=== PATIENT | male | born 1960 | race Caucasian/White ===

== ENCOUNTER → 2018-10-15 11:31 | Outpatient (CLI) | payer BC, SELFPAY ==
[2017-01-09 17:59] VITALS: BMI 27.8
[2018-10-15 14:27] LABS: Absolute Lymphocyte Count 0.68 X10^3/ul (0.83-4.51); Absolute Neutrophil Count 2.9 X10^3/uL (2.0-7.7); Basophil# 0.02 X10^3/uL; Basophil% 0.5 % (0-1); Eosinophil# 0.12 X10^3/uL; Eosinophils% 2.9 % (0-5); Hematocrit 41.1 % (40-54); Hemoglobin 13.8 g/dl (13.0-16.5); Lymphocyte # 0.68 X10^3/ul (4.0); Lymphocyte % 16.2 % (19-41); Mean Corp Hgb Conc 33.6 g/gl (32-36); Mean Corpuscular Hgb 33.8 pg (27.0-32.0); Mean Corpuscular Volume 100.7 fL (80-94); Mean Platelet Vol. 9.6 fl (6.2-12.0); Monocyte# 0.49 X10^3/uL; Monocyte% 11.7 % (0-10); Neutrophil # 2.88 X10^3/uL (2.7-7.7); Neutrophil % 68.5 % (47-70); Platelet Count 199 K/mm3 (150-450); RBC Distribution Width SD 47.7 fl (35.1-43.9); Red Blood Count 4.08 M/mm3 (4.6-6.2); White Blood Count 4.2 K/mm3 (4.4-11.0)
[2018-10-15 14:28] LABS: POSITIVE COUNT NO; POSITIVE DIFFERENTIAL NO; POSITIVE MORPHOLOGY NO
[2018-10-15 14:47] LABS: ALB/GLOB Ratio 1.3 RATIO (0.9-2.4); AST(SGOT) 12 U/L (15-37); Alanine Aminotransfer ALT/SGPT 20 U/L (16-61); Albumin, Serum 3.6 g/dL (3.2-5.0); Alkaline Phosphatase 60 U/L (45-117); Anion Gap 9 (5-15); BUN 13 mg/dL (7-18); BUN/Creat Ratio 12.9 RATIO (10-20); Calcium,Total 8.5 mg/dL (8.5-10.1); Chloride 106 mmol/L (98-107); Cholesterol 179 mg/dL (200); Creatinine, Serum 1.01 mg/dL (0.70-1.30); EST Glomerular Filtration Rate 81 mL/min (>60); Est Glom Filt Rate - Afr Amer 98 mL/min (>60); Ferritin 89 ng/mL (26-388); Globulin 2.7 g/dL (2.2-4.2); Glucose 79 mg/dL (74-106); High Density Lipoprotein 50 mg/dL; Potassium 3.7 mmol/L (3.5-5.1); Protein, Total 6.3 g/dL (6.4-8.2); Sodium Level 145 mmol/L (136-145); Thyroid Stim Hormone (TSH) 2.44 uIU/mL (0.358-3.74); Triglycerides 172 mg/dL; Very Low Density Lipoprotein 34 mg/dL (5-40)
[2018-10-15 14:51] LABS: Microalbumin,Random Urine 7.8 mg/L (NO RANGE EST.); Microalbumin:Creatinine Ratio 6.7 mg/g CRE (<30 mg/g CRE)
--- OUTSIDE RECORDS SUMMARY | 2018-12-01 14:53 | XMS RPT_ITS ---
:1960 Author Organization [facility] Care Team Providers Name Role Phone Ean Malik Attending Unavailable Ean Malik Primary Care Unavailable Ean Malik Attending Unavailable Ean Malik Primary Care Unavailable DOCTOR, OUT OF TOWN Attending Unavailable Dayday Liu Primary Care Unavailable Ean Malik Attending Unavailable Ean Malik Referring Unavailable Ean Malik Primary Care Unavailable Dustin Shook Attending Unavailable Dayday Liu Primary Care Unavailable Waldemar Medina Consulting Unavailable PROBLEMS PROBLEMS DATE TYPE CONDITION / CODE ATTENDING STATUS SOURCE 11/12/2018 Unknown K50.90 - Crohn's Dustin Shook Active [facility] disease, Community unspecified, Hospital without Repository complications / K50.90(ICD-10) 11/12/2018 Unknown 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, Repository nonobliterative, right ear / H80.01(ICD-10) 11/12/2018 Unknown Z87.442 - Personal Dustin Shook Active [facility] history of urinary Community calculi / Hospital Z87.442(ICD-10) Repository 10/16/2018 Unknown I10 - Essential Ean Malik Active [facility] (primary) Community hypertension / Hospital I10(ICD-10) Repository 10/16/2018 Unknown 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[facility] enteritis of Community unspecified site / Hospital 555.9(ICD-9) Repository 10/16/2018 Unknown 401.9 - Unspecified Ean Malik Active [facility] essential Community hypertension / Hospital 401.9(ICD-9) Repository PROCEDURES PROCEDURES No Procedure Records FoundRESULTS RESULTS LIMITED CHEST CT Observed: 11/12/2018 Status: F Source: GIUSEPPE W/CCTA 12:53 PM [facility] H[facility] REPOSITORY [facility] [address] [place] [address] w/CCTA MR#: [id number] Acct: [id number] Name: PERLA BIGGS Rep #: [id number] : 1960 M 58 From: Ilya Miranda MD PCP: Ean Malik MD Status: REG CLI Study: Limited Chest CT w/CCTA Date of Exam: 11/12/18 Exam# [id number] Ordering Dr: Ean Malik MD STUDY: CT CHEST WITH T WITHOUT CONTRAST REASON FOR EXAM: Male, 58 years old. Family history of coronary artery disease. Chest over read examination. RADIATION DOSAGE (If Supplied By Facility): CTDIvol = ( 8.94 ) mGy, DLP = ( 362.28 ) mGycm TECHNIQUE: Transaxial imaging was performed pre-and post contrast administration of 60mL ml of Isovue 370 contrast material. Individualized dose optimization techniques were used for this CT. COMPARISON: None. FINDINGS: Mild degree of increased interstitial markings at the lung bases suggestive of a scarring. There is a 1 cm x 1 cm bulla in the posterior medial segment of the left lower lobe. There is no demonstrated pleural abnormality. Focal calcification of the LAD. There are multiple small lymph nodes within the mediastinum, which are normal in size and morphology most compatible with reactive lymph hyperplasia. Normal hilar regions. Normal enhanced and unenhanced pulmonary arteries. Normal aorta arch and descending thoracic aorta. Normal osseous structures. There is no demonstrated abnormality of the visualized upper abdomen. CT/Limited Chest CT w/CCTA IMPRESSION: Coronary artery calcification. Findings suggestive of bibasilar scarring with small bulla in the left lower lobe. Electronically Signed: Ilya Miranda MD at 14:03 EST Tel [phone], Service support , CC: Ean Malik MD Water Truck Driver: Signed BASIC METABOLIC Collected: 10/30/2018 Status: F Source: [facility] PROFILE (BMP) 9:29 AM [facility] REPOSITORY TYPE CODE TESTS RESULT OUT OF RANGE REFERENCE UNITS LAB L501.0100 74-106 mg/dL Normal GLU 96 Result Comment: Please note revised GLUCOSE reference range effective 2017. LAB L501.1000 7-18 mg/dL Normal BUN 16 LAB L501.1100 0.70-1.30 mg/dL Normal CREAT,SERUM 1.08 Result Comment: The validity of the calculated GFR AND GFRAA in patients over 70 years has not been determined. Clinical correlation is essential. LAB L501.1110 >60 mL/min Normal EST GFR 75 Result Comment: Non- GFR Calc LAB L501.1115 >60 mL/min Normal EST GFR - AA 91 Result Comment: GFR Calc LAB L501.1300 10-20 RATIO Normal BUN/CRE 14.8 LAB L501.2200 8.5-10.1 mg/dL Low CA 8.4 LAB L501.5300 136-145 mmol/L NA Normal 142 LAB L501.5600 3.5-5.1 mmol/L K Normal 4.0 LAB L501.5900 98-107 mmol/L CL Normal 106 LAB L501.6100 21.0-32.0 mmol/L Normal CO2 28.0 LAB L501.6200 5-15 Normal GAP 8 Performed By: #### L500.2500 #### [facility] [address] [place], [address] CBC W/DIFF, AUTOMATED Collected: 10/15/2018 Status: F Source: GIUSEPPE 11:33 AM [facility] REPOSITORY TYPE CODE TESTS RESULT OUT OF RANGE REFERENCE UNITS LAB L100.1000 4.4-11.0 K/mm3 Low WBC 4.2 LAB L100.1200 4.6-6.2 M/mm3 Low RBC 4.08 LAB L100.1300 13.0-16.5 g/dl Normal HGB 13.8 LAB L100.1400 40-54 % Normal HCT 41.1 LAB L100.1500 80-94 fL High MCV 100.7 LAB L100.1600 27.0-32.0 pg High MCH 33.8 LAB L100.1700 32-36 g/gl Normal MCHC 33.6 LAB L100.1810 11.6-14.6 % Normal RDW CV 13.0 LAB L100.1820 35.1-43.9 fl High RDW SD 47.7 LAB L100.1900 150-450 K/mm3 Normal PLT 199 LAB L100.2000 6.2-12.0 fl Normal MPV 9.6 LAB L100.2100 47-70 % Normal NEUT% 68.5 LAB L100.2200 19-41 % Low LY% 16.2 LAB L100.2300 0-10 % High MONO% 11.7 LAB L100.2400 0-5 % Normal EO% 2.9 LAB L100.2500 0-1 % Normal BASO% 0.5 LAB L100.2550 0.0-0.9 % Normal IM GRAN % 0.200 Result Comment: IG% - Immature Granulocytes (promyelocytes, myelocytes and metamyelocytes) > 1% indicates that a LEFT SHIFT is Present. LAB L100.2620 2.0-7.7 X10 3/uL Normal Absolute Neut 2.9 LAB L100.2720 0.83-4.51 X10 3/ul Low Absolute Lymph 0.68 Performed By: #### L100.0100, L500.4050, L500.4100, L501.9520, L503.6550, L502.0250 #### [facility] [address] [place], [address] COMPREHENSIVE METABOLIC Collected: 10/15/2018 Status: F Source: [facility] 11:33 AM [facility] REPOSITORY TYPE CODE TESTS RESULT OUT OF RANGE REFERENCE UNITS LAB L501.0100 74-106 mg/dL Normal GLU 79 Result Comment: Please note revised GLUCOSE reference range effective 2017. LAB L501.1000 7-18 mg/dL Normal BUN 13 LAB L501.1100 0.70-1.30 mg/dL Normal CREAT,SERUM 1.01 Result Comment: The validity of the calculated GFR AND GFRAA in patients over 70 years has not been determined. Clinical correlation is essential. LAB L501.1110 >60 mL/min Normal EST GFR 81 Result Comment: Non- GFR Calc LAB L501.1115 >60 mL/min Normal EST GFR - AA 98 Result Comment: GFR Calc LAB L501.1300 10-20 RATIO Normal BUN/CRE 12.9 LAB L501.1500 6.4-8.2 g/dL Low T PROT 6.3 LAB L501.1800 3.2-5.0 g/dL Normal ALB 3.6 LAB L501.1950 2.2-4.2 g/dL Normal GLOB 2.7 LAB L501.2000 0.9-2.4 RATIO Normal A/G 1.3 LAB L501.2200 8.5-10.1 mg/dL CA Normal 8.5 LAB L501.4100 15-37 U/L Low AST 12 LAB L501.4305 45-117 U/L Normal ALK P 60 LAB L501.4405 16-61 U/L Normal ALT 20 LAB L501.4600 0.20-1.00 mg/dL T Normal BILI 0.60 LAB L501.5300 136-145 mmol/L NA Normal 145 LAB L501.5600 3.5-5.1 mmol/L K Normal 3.7 LAB L501.5900 98-107 mmol/L CL Normal 106 LAB L501.6100 21.0-32.0 mmol/L Normal CO2 30.0 LAB L501.6200 5-15 Normal GAP 9 Performed By: #### L100.0100, L500.4050, L500.4100, L501.9520, L503.6550, L502.0250 #### [facility] [address] [place], [address] LIPID PROFILE Collected: 10/15/2018 Status: F Source: GIUSEPPE 11:33 AM [facility] REPOSITORY TYPE CODE TESTS RESULT OUT OF RANGE REFERENCE UNITS LAB L501.4900 200 mg/dL Normal CHOL 179 Result Comment: <200 mg/dL Desirable 200-240 mg/dL Borderline >240 mg/dL High Risk LAB L501.5000 mg/dL Normal TRIG 172 Result Comment: The drugs N-Acetylcysteine and Metamizole may falsely depress this assay. Serum Triglycerides Reference Interval Normal <150 mg/dL Borderline high 150 - 199 mg/dL High 200 - 499 mg/dL Very High > or = 500 mg/dL LAB L501.6400 mg/dL Normal HDL 50 Result Comment: The drugs N-Acetylcysteine and Metamizole may falsely depress this assay. Reference Range HDL <40 mg/dL Low HDL Cholesterol HDL >or= 60 mg/dL High HDL Cholesterol LAB L501.6500 0-130 mg/dL Normal LDL 95 LAB L501.6600 5-40 mg/dL Normal VLDL 34 Performed By: #### L100.0100, L500.4050, L500.4100, L501.9520, L503.6550, L502.0250 #### [facility] [address] [facility] [address] [place], [place], [address] THYROID STIM HORMONE Collected: 10/15/2018 Status: F Source: [facility] ([facility]) 11:33 AM [facility] REPOSITORY TYPE CODE TESTS RESULT OUT OF RANGE REFERENCE UNITS LAB L501.9520 0.358-3.74 uIU/mL Normal TSH 2.44 Performed By: #### L100.0100, L500.4050, L500.4100, L501.9520, L503.6550, L502.0250 #### [facility] [address] [place], [place], [address] FERRITIN Collected: 10/15/2018 Status: F Source: [facility] 11:33 AM [facility] REPOSITORY TYPE CODE TESTS RESULT OUT OF RANGE REFERENCE UNITS LAB L503.6550 26-388 ng/mL Normal FERRITIN 89 Performed By: #### L100.0100, L500.4050, L500.4100, L501.9520, L503.6550, L502.0250 #### [facility] [address] [place], [address] MICROALB:CREAT Collected: 10/15/2018 Status: F Source: GIUSEPPE RATIO,RANDOM UR 11:33 AM [facility] REPOSITORY TYPE CODE TESTS RESULT OUT OF RANGE REFERENCE UNITS LAB L501.1200 NO RANGE EST. mg/dL Normal UR CREAT 116.00 LAB L502.0500 NO RANGE EST. mg/L Normal 7.8 MICROALBUMIN ,UR LAB L502.0600 <30 mg/g CRE mg/g CRE Normal 6.7 MALB:CREAT Performed By: #### L100.0100, L500.4050, L500.4100, L501.9520, L503.6550, L502.0250 #### [facility] [address] [place], [address] DOWNTIME REPORT Observed: 04/24/2018 Status: F Source: GIUSEPPE 12:13 PM [facility] REPOSITORY [facility] Medical Records Department [address] [place] [address] Downtime Report MR#: [id number] Acct: [id number] Name: PERLA BIGGS Rep #: [id number] : 1960 57 From: Brody Mcdaniel PCP: Dayday Liu MD Status: REG RCR This patient was seen during an EMR downtime April 07, 2018 - April 14, 2018. This patient may have a combination of paper and electronic documentation or all paper documentation. All documentation is viewable within the e-chart portion of e(ye)BRAIN for each patient visit. ALLERGIES ALLERGIES DATE TYPE / CODE NAME / CODE REACTION SEVERITY SOURCE 01/09/2017 Drug amoxicillin Rash Unknown [facility] Allergy/416 trihydrate/[id number] [facility] 060352(SNOM 707(RXNORM) Hospital ED CT) Repository ENCOUNTERS ENCOUNTERS ADMIT/DISCHARGE ACCOUNT ADMITTING ENCOUNTER LOCATION SOURCE NUMBER CLASS 11/12/2018 [id number] Ambulatory BMSBuilding:B [facility] MS.CF.[facility] Repository 11/12/2018 [id number] Ambulatory [facility] ing:CT Repository 10/30/2018 [id number] Ambulatory [facility] ing:MFPLAB Repository 10/20/2018 [id number] Ambulatory [place] [facility] 0 [facility] ing:MASS Repository 10/15/2018 [id number] Ambulatory [facility] 4 [facility] ing:MFPLAB Repository PAYERS PAYERS ENCOUNTER GUARANTOR PAYER SUBSCRIBER SOURCE 11/12/2018 PERLA A Primary PERLA A [facility] [id number] Insurance:MEDICAL MAIRSDOB: [facility] 5650[place] Number: Repository [id number]: [phone]) [id number] [phone] (HP) Date:[id number] [address] [place] [id number]: 11/12/2018 Secondary NOT GIVENUNK [facility] Insurance:SELF PAY [facility] Number: Effective Repository Date:2018-11-12 11/12/2018 PERLA A Primary NOT GIVENUNK [facility] [id number] Insurance:SELF PAY [place], [place] Number: Effective Repository [id number]: 330) Date:2018-10-22 [phone] (HP) 10/30/2018 MARIO A [id number] Primary PERLA A [facility] [place] Insurance:ANTHEMPolic MAIRSDOB: [place] Number: [id number] [id number]: [phone]) [id number] Repository [phone] (HP) Date:[id number] [place] [address]TE: 10/30/2018 Secondary NOT GIVENUNK [facility] Insurance:SELF PAY [facility] Number: Effective Repository Date:2018-10-30 10/20/2018 MARIO A [id number] Primary NOT GIVENUNK [facility] N [place] Insurance:SELF PAY [facility] [address]Gco: [phone] Number: Effective Repository [phone] (HP) Date:2017-03-12 10/15/2018 MARIO A [id number] Primary PERLA A [facility] N [place] Insurance:ANTHEMPolic [place]OB: [place] Number: [id number] [id number]: ([phone]) [id number] Repository [phone] () Date:0728-08-62[address], [place] [address]SF: 10/15/2018 Secondary NOT GIVENUNK [facility] Insurance:SELF PAY [facility] Number: Effective Repository Date:2018-10-15
== END ==
PROVIDERS: Family Provider Family Medicine; PCP Family Medicine; Visit Provider Family Medicine
DX: K50.90 Crohn's disease, unspecified, without complications (principal); I10 Essential (primary) hypertension
CPT/HCPCS: 36415; 80053; 80061; 82043; 82570; 82728; 84443; 85025

== ENCOUNTER → 2018-10-30 09:28 | Outpatient (CLI) | payer BC, SELFPAY ==
[2017-01-09 17:59] VITALS: BMI 27.8
[2018-10-30 12:58] LABS: Anion Gap 8 (5-15); BUN 16 mg/dL (7-18); BUN/Creat Ratio 14.8 RATIO (10-20); Calcium,Total 8.4 mg/dL (8.5-10.1); Chloride 106 mmol/L (98-107); Creatinine, Serum 1.08 mg/dL (0.70-1.30); EST Glomerular Filtration Rate 75 mL/min (>60); Est Glom Filt Rate - Afr Amer 91 mL/min (>60); Glucose 96 mg/dL (74-106); Sodium Level 142 mmol/L (136-145)
== END ==
PROVIDERS: Family Provider Family Medicine; PCP Family Medicine; Visit Provider Family Medicine
DX: I10 Essential (primary) hypertension (principal)
CPT/HCPCS: 36415; 80048

== ENCOUNTER → 2018-11-12 12:42 | Outpatient (CLI) | payer SELFPAY ==
--- NOTE | 2018-11-12 12:53 | CT_ITS ---
STUDY: CT CHEST WITH T WITHOUT CONTRAST REASON FOR EXAM: Male, 58 years old. Family history of coronary artery disease. Chest over read examination. RADIATION DOSAGE (If Supplied By Facility): CTDIvol = ( 8.94 ) mGy, DLP = ( 362.28 ) mGycm TECHNIQUE: Transaxial imaging was performed pre-and post contrast administration of 60mL ml of Isovue 370 contrast material. Individualized dose optimization techniques were used for this CT. COMPARISON: None. FINDINGS: Mild degree of increased interstitial markings at the lung bases suggestive of a scarring. There is a 1 cm x 1 cm bulla in the posterior medial segment of the left lower lobe. There is no demonstrated pleural abnormality. Focal calcification of the LAD. There are multiple small lymph nodes within the mediastinum, which are normal in size and morphology most compatible with reactive lymph hyperplasia. Normal hilar regions. Normal enhanced and unenhanced pulmonary arteries. Normal aorta arch and descending thoracic aorta. Normal osseous structures. There is no demonstrated abnormality of the visualized upper abdomen. CT/Limited Chest CT w/CCTA IMPRESSION: Coronary artery calcification. Findings suggestive of bibasilar scarring with small bulla in the left lower lobe. Electronically Signed: Ilya Miranda MD at 14:03 EST Tel [phone], Service support ,
[2018-11-12 13:02] VITALS: BP 153/89; PULSE 59; RESP 14; O2SAT 99; BMI 27.6
[2018-11-12 13:23] VITALS: BP 153/89; PULSE 59
[2018-11-12 13:30] VITALS: BP 136/83; PULSE 66; RESP 14
--- NOTE | 2018-11-13 18:38 | CCTA.WCONT ---
CCTA w/Cont Coronary Arteries Date of Study:: 11/12/18 Dyspnea on exertion Consent:: Per the patient Cardiac CTA LEFT MAIN CORONARY ARTERY: This is a large vessel giving rise to the left anterior descending and left circumflex coronary arteries. It does not appear to demonstrate any obvious angiographically significant appearing coronary artery disease. LEFT ANTERIOR DESCENDING CORONARY ARTERY: This is a large vessel which gives rise to a diagonal branch. The LAD does not appear to demonstrate any obvious angiographically significant appearing coronary artery disease. The first diagonal branch appears to demonstrate a proximal eccentric calcified nonobstructive plaque. LEFT CIRCUMFLEX CORONARY ARTERY: This is a large vessel which does not appear to demonstrate any obvious angiographically significant appearing coronary artery disease. RIGHT CORONARY ARTERY: This is a large dominant vessel which does not appear to demonstrate any obvious angiographically significant appearing coronary artery disease. THORACIC AORTA: The thoracic aorta appears to be patent with no obvious angiographically significant appearing peripheral arterial occlusive disease. PULMONARY ARTERY: The main pulmonary artery and right and left pulmonary arteries appear to be patent without obvious filling defects. LEFT ATRIUM/APPENDAGE: The left atrial appendage appears without obvious filling defect. MITRAL VALVE: The mitral valve appears to be bileaflet. AORTIC VALVE: The aortic valve appears to be trileaflet. LEFT VENTRICLE: Secondary to IT technical difficulties regarding left ventricular evaluation, the left ventricular wall motion, systolic function, and LVEF cannot be commented upon at this time. CORONARY CALCIUM SCORE: The coronary calcium score was reported at 37.2. According to pre-published reference tables a coronary calcium score of 37.2 would be indicative of mild plaque burden and the likelihood of minimal to mild coronary artery stenosis. This note was generated with [employer] software. It may contain incorrect words, spelling, and punctuation that were not noted in checking the note before signing.
--- NOTE | 2018-11-13 18:42 | CCTA_ITS ---
CCTA w/Cont Coronary Arteries Date of Study:: 11/12/18 Dyspnea on exertion Consent:: Per the patient Cardiac CTA LEFT MAIN CORONARY ARTERY: This is a large vessel giving rise to the left anterior descending and left circumflex coronary arteries. It does not appear to demonstrate any obvious angiographically significant appearing coronary artery disease. LEFT ANTERIOR DESCENDING CORONARY ARTERY: This is a large vessel which gives rise to a diagonal branch. The LAD does not appear to demonstrate any obvious angiographically significant appearing coronary artery disease. The first diagonal branch appears to demonstrate a proximal eccentric calcified nonobstructive plaque. LEFT CIRCUMFLEX CORONARY ARTERY: This is a large vessel which does not appear to demonstrate any obvious angiographically significant appearing coronary artery disease. RIGHT CORONARY ARTERY: This is a large dominant vessel which does not appear to demonstrate any obvious angiographically significant appearing coronary artery disease. THORACIC AORTA: The thoracic aorta appears to be patent with no obvious angiographically signi ficant appearing peripheral arterial occlusive disease. PULMONARY ARTERY: The main pulmonary artery and right and left pulmonary arteries appear to be patent without obvious filling defects. LEFT ATRIUM/APPENDAGE: The left atrial appendage appears without obvious filling defect. MITRAL VALVE: The mitral valve appears to be bileaflet. AORTIC VALVE: The aortic valve appears to be trileaflet. LEFT VENTRICLE: Secondary to IT technical difficulties regarding left ventricular evaluation, the left ventricular wall motion, systolic function, and LVEF cannot be commented upon at this time. CORONARY CALCIUM SCORE: The coronary calcium score was reported at 37.2. According to pre-published reference tables a coronary calcium score of 37.2 would be indicative of mild plaque burden and the likelihood of minimal to mild coronary artery stenosis. This note was generated with [employer] software. It may contain incorrect words, spelling, and punctuation that were not noted in checking the note before signing.
== END ==
PROVIDERS: Family Provider Family Medicine; PCP Family Medicine; Referring Provider Family Medicine; Visit Provider Family Medicine
DX: R06.09 Other forms of dyspnea (principal); Z82.49 Family history of ischemic heart disease and other diseases of the circulatory system
CPT/HCPCS: 75571; 75574; 76380; Q9967; A4216

== ENCOUNTER → 2019-08-03 09:33 | Outpatient (CLI) | payer BC, SELFPAY ==
[2018-11-12 13:02] VITALS: BMI 27.6
[2019-08-03 09:36] LABS: Lyme Ab Screen Interpretation REF LAB
[2019-08-03 12:28] LABS: Absolute Lymphocyte Count 0.36 X10^3/uL (0.83-4.51); Absolute Neutrophil Count 3.1 X10^3/uL (2.0-7.7); Basophil# 0.03 X10^3/uL; Basophil% 0.7 % (0-1); Differential Indicated SCAN CRITERIA MET; Eosinophil# 0.14 X10^3/uL; Eosinophils% 3.4 % (0-5); Hematocrit 42.1 % (40-54); Hemoglobin 14.3 g/dL (13.0-16.5); Lymphocyte # 0.36 X10^3/ul (4.0); Lymphocyte % 8.7 % (19-41); Mean Corpuscular Hgb 34.3 pg (27.0-32.0); Mean Platelet Vol. 9.8 fl (6.2-12.0); Monocyte# 0.49 X10^3/uL; Monocyte% 11.8 % (0-10); NRBC Flagged by Analyzer 0 % (0-5); Neutrophil # 3.12 X10^3/uL (2.7-7.7); Neutrophil % 75.2 % (47-70); POSITIVE DIFFERENTIAL YES; Platelet Count 214 K/mm3 (150-450); RBC Distribution Width CV 11.9 % (11.6-14.6); RBC Distribution Width SD 44.9 fl (35.1-43.9); Red Blood Count 4.17 M/mm3 (4.6-6.2); White Blood Count 4.2 K/mm3 (4.4-11.0)
[2019-08-03 13:06] LABS: Vitamin B12 336 pg/mL (211-911)
[2019-08-03 13:11] LABS: ALB/GLOB Ratio 1.2 RATIO (0.9-2.4); AST(SGOT) 15 U/L (15-37); Alanine Aminotransfer ALT/SGPT 27 U/L (16-61); Albumin, Serum 3.9 g/dL (3.2-5.0); Alkaline Phosphatase 63 U/L (45-117); Anion Gap 8 (5-15); BUN 12 mg/dL (7-18); BUN/Creat Ratio 10.9 RATIO (10-20); Calcium,Total 8.7 mg/dL (8.5-10.1); Chloride 106 mmol/L (98-107); EST Glomerular Filtration Rate 73 mL/min (>60); Est Glom Filt Rate - Afr Amer 89 mL/min (>60); Globulin 3.2 g/dL (2.2-4.2); Glucose 118 mg/dL (74-106); Potassium 3.8 mmol/L (3.5-5.1); Protein, Total 7.1 g/dL (6.4-8.2); Sodium Level 142 mmol/L (136-145); Thyroid Stim Hormone (TSH) 4.59 uIU/mL (0.358-3.74)
[2019-08-04 14:09] LABS: Pathologist Review Reviewed
[2019-08-05 09:43] LABS: T4 Free Direct 0.91 ng/dL (0.76-1.46)
[2019-08-05 12:56] LABS: Lyme Scn Total Ab w/Rflx <0.91 ISR (0.00-0.90)
[2019-08-07 02:40] LABS: Rapid Plasmin Reagin (RPR) NONREACTIVE (NONREACTIVE)
== END ==
PROVIDERS: Family Provider Family Medicine; PCP Family Medicine; Referring Provider Family Medicine; Visit Provider Family Medicine
DX: G31.84 Mild cognitive impairment of uncertain or unknown etiology (principal)
CPT/HCPCS: 36415; 80053; 82607; 82746; 84439; 84443; 85025; 86592; 86618

== ENCOUNTER → 2019-08-11 14:21 | Outpatient (CLI) | payer BC, SELFPAY ==
[2018-11-12 13:02] VITALS: BMI 27.6
--- NOTE | 2019-08-11 14:25 | CT_ITS ---
STUDY: CT BRAIN WITHOUT CONTRAST REASON FOR EXAM: Male, 58 years old. Cognitive impairment. RADIATION DOSAGE (If Supplied By Facility): CTDIvol = ( 61 ) mGy, DLP = ( limiting 1 ) mGycm TECHNIQUE: Transaxial CT imaging of the brain was performed without administration of intravenous contrast material. Individualized dose optimization techniques were used for this CT. COMPARISON: None. FINDINGS: There is no acute bleed or infarct. There are normal white matter tracts. The ventricles are normal in configuration. There is no hydrocephalus. The visualized paranasal sinuses are clear. The mastoid air cells are well aerated. There is no skull fracture. CT/Brain/Head without Contrast IMPRESSION: Unremarkable noncontrast CT of the brain. Electronically Signed: Nakul Sequeira, at 17:45 EDT Tel , Service support ,
== END ==
PROVIDERS: Family Provider Family Medicine; PCP Family Medicine; Referring Provider Family Medicine; Visit Provider Family Medicine
DX: G31.84 Mild cognitive impairment of uncertain or unknown etiology (principal)
CPT/HCPCS: 70450

== ENCOUNTER → 2020-02-29 10:18 | Outpatient (CLI) | payer BC, SELFPAY ==
[2018-11-12 13:02] VITALS: BMI 27.6
[2020-02-29 12:10] LABS: Absolute Lymphocyte Count 0.73 X10^3/uL (0.83-4.51); Absolute Neutrophil Count 2.5 X10^3/uL (2.0-7.7); Basophil# 0.04 X10^3/uL; Eosinophil# 0.12 X10^3/uL; Eosinophils% 3.1 % (0-5); Hematocrit 42.1 % (40-54); Hemoglobin 14.2 g/dL (13.0-16.5); Lymphocyte # 0.73 X10^3/ul (4.0); Lymphocyte % 19.1 % (19-41); Mean Corp Hgb Conc 33.7 g/dL (32-36); Mean Corpuscular Hgb 34.4 pg (27.0-32.0); Mean Corpuscular Volume 101.9 fL (80-94); Mean Platelet Vol. 9.9 fl (6.2-12.0); Monocyte# 0.44 X10^3/uL; Monocyte% 11.5 % (0-10); NRBC Flagged by Analyzer 0 % (0-5); Neutrophil # 2.47 X10^3/uL (2.7-7.7); Neutrophil % 64.8 % (47-70); Platelet Count 206 K/mm3 (150-450); RBC Distribution Width CV 12.1 % (11.6-14.6); RBC Distribution Width SD 45.6 fl (35.1-43.9); Red Blood Count 4.13 M/mm3 (4.6-6.2); White Blood Count 3.8 K/mm3 (4.4-11.0)
[2020-02-29 12:20] LABS: AST(SGOT) 15 U/L (15-37); Alanine Aminotransfer ALT/SGPT 20 U/L (16-61); Albumin, Serum 3.6 g/dL (3.2-5.0); Alkaline Phosphatase 64 U/L (45-117); Bilirubin, Direct 0.12 mg/dL (0.00-0.30); Globulin 2.8 g/dL (2.2-4.2); Protein, Total 6.4 g/dL (6.4-8.2)
== END ==
PROVIDERS: PCP Family Medicine; Referring Provider Internal Medicine Gastroenterology; Visit Provider Internal Medicine Gastroenterology
DX: K51.90 Ulcerative colitis, unspecified, without complications (principal)
CPT/HCPCS: 36415; 80076; 85025

== ENCOUNTER → 2020-05-18 15:32 | Outpatient (CLI) | payer BC, SELFPAY ==
[2018-11-12 13:02] VITALS: BMI 27.6
--- NOTE | 2020-05-18 15:35 | RAD_ITS ---
STUDY: X-RAY CHEST REASON FOR EXAM: Male, 59 years old. CHRONIC COUGH TECHNIQUE: PA and lateral views of the chest. COMPARISON: Previous study of 01/09/2017 FINDINGS: The lungs are clear and expanded. There is no demonstrated pleural abnormality. Normal size heart. Normal mediastinum and nubia. Normal visualized pulmonary arteries. Normal visualized aortic arch and descending thoracic aorta. Normal visualized thoracic spine. Normal visualized ribs, clavicles, and shoulders. There is no demonstrated abnormality of the visualized soft tissue structures of the upper abdomen. RAD/Chest PA and Lateral IMPRESSION: Normal x-ray examination of the chest. Electronically Signed: Gregory Oleary MD at 16:08 EDT , Service support ,
== END ==
PROVIDERS: PCP Family Medicine; Referring Provider Family Medicine; Visit Provider Family Medicine
DX: R05 Cough (principal)
CPT/HCPCS: 71046

== ENCOUNTER → 2020-05-25 09:27 | Outpatient (CLI) | payer BC, SELFPAY ==
[2018-11-12 13:02] VITALS: BMI 27.6
[2020-05-25 12:42] LABS: Absolute Lymphocyte Count 0.87 X10^3/uL (0.83-4.51); Absolute Neutrophil Count 3.4 X10^3/uL (2.0-7.7); Basophil# 0.06 X10^3/uL; Basophil% 1.2 % (0-1); Eosinophils% 3.9 % (0-5); Hematocrit 43.4 % (40-54); Hemoglobin 14.8 g/dL (13.0-16.5); Lymphocyte # 0.87 X10^3/ul (4.0); Lymphocyte % 17.1 % (19-41); Mean Corp Hgb Conc 34.1 g/dL (32-36); Mean Corpuscular Hgb 34.9 pg (27.0-32.0); Mean Corpuscular Volume 102.4 fL (80-94); Mean Platelet Vol. 9.8 fl (6.2-12.0); Monocyte# 0.59 X10^3/uL; Monocyte% 11.6 % (0-10); NRBC Flagged by Analyzer 0 % (0-5); Neutrophil # 3.36 X10^3/uL (2.7-7.7); Neutrophil % 65.8 % (47-70); Platelet Count 214 K/mm3 (150-450); RBC Distribution Width CV 11.7 % (11.6-14.6); RBC Distribution Width SD 43.8 fl (35.1-43.9); Red Blood Count 4.24 M/mm3 (4.6-6.2); White Blood Count 5.1 K/mm3 (4.4-11.0)
[2020-05-25 13:01] LABS: Microalbumin,Random Urine 9.7 mg/L (NO RANGE EST.); Microalbumin:Creatinine Ratio 9.9 mg/g CRE (<30 mg/g CRE)
[2020-05-25 13:02] LABS: ALB/GLOB Ratio 1.3 RATIO (0.9-2.4); AST(SGOT) 10 U/L (15-37); Alanine Aminotransfer ALT/SGPT 21 U/L (16-61); Albumin, Serum 3.8 g/dL (3.2-5.0); Alkaline Phosphatase 66 U/L (45-117); Anion Gap 5 (5-15); BUN 18 mg/dL (7-18); BUN/Creat Ratio 16.5 RATIO (10-20); Calcium,Total 8.5 mg/dL (8.5-10.1); Chloride 108 mmol/L (98-107); Cholesterol 209 mg/dL (200); Creatinine, Serum 1.09 mg/dL (0.70-1.30); EST Glomerular Filtration Rate 74 mL/min (>60); Est Glom Filt Rate - Afr Amer 89 mL/min (>60); Ferritin 102 ng/mL (26-388); Globulin 2.9 g/dL (2.2-4.2); Glucose 114 mg/dL (74-106); High Density Lipoprotein 40 mg/dL; PSA,Total- Diagnostic 1.27 ng/mL (0.0-4.0); Potassium 3.8 mmol/L (3.5-5.1); Protein, Total 6.7 g/dL (6.4-8.2); Sodium Level 141 mmol/L (136-145); Thyroid Stim Hormone (TSH) 4.03 uIU/mL (0.358-3.74); Triglycerides 287 mg/dL; Very Low Density Lipoprotein 57 mg/dL (5-40)
[2020-05-26 10:47] LABS: T4 Free Direct 0.86 ng/dL (0.76-1.46)
== END ==
PROVIDERS: PCP Family Medicine; Referring Provider Family Medicine; Visit Provider Family Medicine
DX: Z12.5 Encounter for screening for malignant neoplasm of prostate (principal); K50.90 Crohn's disease, unspecified, without complications; I10 Essential (primary) hypertension
CPT/HCPCS: 36415; 80053; 80061; 82043; 82570; 82728; 83735; 84153; 84439; 84443; 85025

== ENCOUNTER → 2020-06-30 06:55 | Outpatient (CLI) | payer BC, SELFPAY ==
[2018-11-12 13:02] VITALS: BMI 27.6
--- NOTE | 2020-07-01 10:29 | PFT ---
INTRODUCTION: The patient is a 59-year-old male that presents for pulmonary function studies secondary to a diagnosis of chronic cough. Respiratory therapy reports good patient effort. Bronchodilators were used during testing. INTERPRETATION: Forced expiration spirometry demonstrates no evidence of a large airways obstructive ventilatory defect. There was no significant response to aerosolized bronchodilators. Spirograms are of good quality and plateau normally. Body plethysmography was performed and reveals lung volumes to be within normal limits. Diffusing capacity by single breath CO is similarly within normal limits. IMPRESSION: Grossly normal pulmonary function studies.
== END ==
PROVIDERS: PCP Family Medicine; Referring Provider Family Medicine; Visit Provider Family Medicine
DX: R05 Cough (principal)
CPT/HCPCS: 94060; 94726; 94729

== ENCOUNTER 2021-01-13 13:00 | Outpatient (RCR) | payer BC, SELFPAY ==
[2018-11-12 13:02] VITALS: BMI 27.6
[2021-01-13] MEDS: COVID-19 VACC, MRNA(PFIZER)/PF 30 MCG/0.3 ML SYRINGE IM (17:54)
[2021-02-03] MEDS: COVID-19 VACC, MRNA(PFIZER)/PF 30 MCG/0.3 ML SYRINGE IM (17:33)
== END 2021-01-13 23:59 ==
LOC: IMMUN 13:00
PROVIDERS: PCP Family Medicine; Visit Provider Family Medicine
DX: Z23 Encounter for immunization (principal)
CPT/HCPCS: 0001A; 0002A; 91300

== ENCOUNTER → 2021-08-15 11:30 | Outpatient (CLI) | payer BC, SELFPAY ==
[2021-08-15 15:00] LABS: Absolute Neutrophil Count 2.8 X10^3/uL (2.0-7.7); Basophil# 0.04 X10^3/uL; Eosinophils% 2.6 % (0-5); Hematocrit 41.7 % (40-54); Hemoglobin 14.4 g/dL (13.0-16.5); Mean Corp Hgb Conc 34.5 g/dL (32-36); Mean Corpuscular Volume 101.2 fL (80-94); Mean Platelet Vol. 10.5 fl (6.2-12.0); Monocyte# 0.37 X10^3/uL; Monocyte% 9.6 % (0-10); NRBC Flagged by Analyzer 0 % (0-5); Neutrophil # 2.82 X10^3/uL (2.7-7.7); Neutrophil % 73.5 % (47-70); POSITIVE DIFFERENTIAL YES; Platelet Count 224 K/mm3 (150-450); RBC Distribution Width CV 12.2 % (11.6-14.6); RBC Distribution Width SD 45.8 fl (35.1-43.9); Red Blood Count 4.12 M/mm3 (4.6-6.2); White Blood Count 3.8 K/mm3 (4.4-11.0)
[2021-08-15 15:04] LABS: Differential Indicated SCAN CRITERIA MET
[2021-08-15 15:41] LABS: ALB/GLOB Ratio 1.2 RATIO (0.9-2.4); AST(SGOT) 16 U/L (15-37); Alanine Aminotransfer ALT/SGPT 22 U/L (16-61); Albumin, Serum 3.7 g/dL (3.2-5.0); Alkaline Phosphatase 65 U/L (45-117); Anion Gap 6 (5-15); BUN 17 mg/dL (7-18); BUN/Creat Ratio 15.2 RATIO (10-20); Calcium,Total 8.5 mg/dL (8.5-10.1); Chloride 107 mmol/L (98-107); Cholesterol 163 mg/dL (200); Creatinine, Serum 1.12 mg/dL (0.70-1.30); EST Glomerular Filtration Rate 71 mL/min (>60); Est Glom Filt Rate - Afr Amer 86 mL/min (>60); Globulin 3.1 g/dL (2.2-4.2); Glucose 104 mg/dL (74-106); High Density Lipoprotein 47 mg/dL; Potassium 4.2 mmol/L (3.5-5.1); Protein, Total 6.8 g/dL (6.4-8.2); Sodium Level 139 mmol/L (136-145); Thyroid Stim Hormone (TSH) 2.82 uIU/mL (0.358-3.74); Triglycerides 104 mg/dL; Very Low Density Lipoprotein 21 mg/dL (5-40)
[2021-08-15 15:42] LABS: Differential Comment SCANNED
[2021-08-17 09:21] LABS: Pathologist Review Reviewed
== END ==
PROVIDERS: PCP Family Medicine; Referring Provider Family Medicine; Visit Provider Family Medicine
DX: Z00.00 Encounter for general adult medical examination without abnormal findings (principal); K50.90 Crohn's disease, unspecified, without complications; I10 Essential (primary) hypertension; R76.8 Other specified abnormal immunological findings in serum; Z20.822 Contact with and (suspected) exposure to COVID-19
CPT/HCPCS: 36415; 80053; 80061; 84443; 85025; 86769

== ENCOUNTER → 2022-03-06 | Outpatient (CLI) | payer BC, SELFPAY ==
[2022-03-06 17:45] LABS: Absolute Lymphocyte Count 0.64 X10^3/uL (0.83-4.51); Basophil# 0.03 X10^3/uL; Basophil% 0.7 % (0-1); Eosinophil# 0.14 X10^3/uL; Eosinophils% 3.3 % (0-5); Hematocrit 39.4 % (40-54); Hemoglobin 13.4 g/dL (13.0-16.5); Lymphocyte # 0.64 X10^3/ul (0.83-4.51); Mean Corpuscular Hgb 35.1 pg (27.0-32.0); Mean Corpuscular Volume 103.1 fL (80-94); Mean Platelet Vol. 9.6 fl (6.2-12.0); Monocyte# 0.47 X10^3/uL; NRBC Flagged by Analyzer 0 % (0-5); Neutrophil # 2.98 X10^3/uL (2.7-7.7); Neutrophil % 69.8 % (47-70); Platelet Count 234 K/mm3 (150-450); RBC Distribution Width CV 12.6 % (11.6-14.6); Red Blood Count 3.82 M/mm3 (4.6-6.2); White Blood Count 4.3 K/mm3 (4.4-11.0)
[2022-03-06 18:15] LABS: AST(SGOT) 18 U/L (15-37); Alanine Aminotransfer ALT/SGPT 25 U/L (16-61); Albumin, Serum 3.7 g/dL (3.2-5.0); Alkaline Phosphatase 65 U/L (45-117); Bilirubin, Direct 0.12 mg/dL (0.00-0.30); CRP < 2.90 mg/L (0.0-3.0); Protein, Total 6.7 g/dL (6.4-8.2)
[2022-03-06 18:48] LABS: Erythrocyte Sedimentation Rate < 1 mm/hr (0-20)
== END | disposition home or self-care (01) ==
LOC: MTLAB 14:53
PROVIDERS: PCP Family Medicine; Referring Provider Internal Medicine Gastroenterology; Visit Provider Internal Medicine Gastroenterology
DX: K51.90 Ulcerative colitis, unspecified, without complications (principal)
CPT/HCPCS: 36415; 80076; 85025; 85652; 86140

== ENCOUNTER → 2022-08-14 | Outpatient (CLI) | payer BC, SELFPAY ==
[2022-08-14 15:15] LABS: Erythrocyte Sedimentation Rate 3 mm/hr (0-20)
[2022-08-14 15:16] LABS: Absolute Lymphocyte Count 0.71 X10^3/uL (0.83-4.51); Absolute Neutrophil Count 3.2 X10^3/uL (2.0-7.7); Basophil# 0.03 X10^3/uL; Basophil% 0.6 % (0-1); Eosinophil# 0.13 X10^3/uL; Eosinophils% 2.8 % (0-5); Hematocrit 42.1 % (40-54); Hemoglobin 14.4 g/dL (13.0-16.5); Lymphocyte # 0.71 X10^3/ul (0.83-4.51); Lymphocyte % 15.2 % (19-41); Mean Corp Hgb Conc 34.2 g/dL (32-36); Mean Corpuscular Hgb 35.4 pg (27.0-32.0); Mean Corpuscular Volume 103.4 fL (80-94); Mean Platelet Vol. 9.8 fl (6.2-12.0); Monocyte# 0.57 X10^3/uL; Monocyte% 12.2 % (0-10); NRBC Flagged by Analyzer 0 % (0-5); Neutrophil # 3.22 X10^3/uL (2.7-7.7); Platelet Count 252 K/mm3 (150-450); RBC Distribution Width CV 12.9 % (11.6-14.6); RBC Distribution Width SD 49.1 fl (35.1-43.9); Red Blood Count 4.07 M/mm3 (4.6-6.2); White Blood Count 4.7 K/mm3 (4.4-11.0)
[2022-08-14 15:34] LABS: ALB/GLOB Ratio 1.1 RATIO (0.9-2.4); AST(SGOT) 20 U/L (15-37); Alanine Aminotransfer ALT/SGPT 23 U/L (16-61); Albumin, Serum 3.7 g/dL (3.2-5.0); Alkaline Phosphatase 69 U/L (45-117); Anion Gap 6 (5-15); BUN 13 mg/dL (7-18); Calcium,Total 8.9 mg/dL (8.5-10.1); Chloride 107 mmol/L (98-107); Creatinine, Serum 1.18 mg/dL (0.70-1.30); EST Glomerular Filtration Rate 67 mL/min (>60); Est Glom Filt Rate - Afr Amer 81 mL/min (>60); Globulin 3.5 g/dL (2.2-4.2); Glucose 91 mg/dL (74-106); Potassium 3.8 mmol/L (3.5-5.1); Protein, Total 7.2 g/dL (6.4-8.2); Sodium Level 141 mmol/L (136-145); Thyroid Stim Hormone (TSH) 3.35 uIU/mL (0.358-3.74)
[2022-08-14 15:37] LABS: Microalbumin,Random Urine 15.4 mg/L (NO RANGE EST.); Microalbumin:Creatinine Ratio 8.4 mg/g CRE (<30 mg/g CRE)
== END | disposition home or self-care (01) ==
LOC: MFPLAB 12:13
PROVIDERS: PCP Family Medicine; Referring Provider Family Medicine; Visit Provider Family Medicine
DX: Z00.00 Encounter for general adult medical examination without abnormal findings (principal); K50.90 Crohn's disease, unspecified, without complications; I10 Essential (primary) hypertension
CPT/HCPCS: 36415; 80053; 82043; 82570; 84443; 85025; 85652

== ENCOUNTER → 2023-08-19 | Outpatient (CLI) | payer BC, SELFPAY ==
[2023-08-19 12:23] LABS: Erythrocyte Sedimentation Rate 1 mm/hr (0-20)
[2023-08-19 12:29] LABS: Absolute Lymphocyte Count 0.44 X10^3/uL (0.83-4.51); Absolute Neutrophil Count 2.8 X10^3/uL (2.0-7.7); Basophil# 0.03 X10^3/uL; Basophil% 0.8 % (0-1); Eosinophil# 0.08 X10^3/uL; Eosinophils% 2.1 % (0-5); Hematocrit 42.7 % (40-54); Hemoglobin 14.5 g/dL (13.0-16.5); Lymphocyte # 0.44 X10^3/ul (0.83-4.51); Lymphocyte % 11.6 % (19-41); Mean Corpuscular Hgb 36.1 pg (27.0-32.0); Mean Corpuscular Volume 106.2 fL (80-94); Mean Platelet Vol. 9.6 fl (6.2-12.0); Monocyte# 0.45 X10^3/uL; Monocyte% 11.8 % (0-10); NRBC Flagged by Analyzer 0 % (0-5); Neutrophil # 2.78 X10^3/uL (2.7-7.7); Neutrophil % 73.2 % (47-70); POSITIVE DIFFERENTIAL YES; Platelet Count 198 K/mm3 (150-450); RBC Distribution Width CV 12.6 % (11.6-14.6); RBC Distribution Width SD 49.9 fl (35.1-43.9); Red Blood Count 4.02 M/mm3 (4.6-6.2); White Blood Count 3.8 K/mm3 (4.4-11.0)
[2023-08-19 12:32] LABS: Differential Indicated SCAN CRITERIA MET
[2023-08-19 12:45] LABS: Microalbumin,Random Urine 18.5 mg/L (NO RANGE EST.); Microalbumin:Creatinine Ratio 10.1 mg/g CRE (<30 mg/g CRE)
[2023-08-19 12:49] LABS: ALB/GLOB Ratio 1.2 RATIO (0.9-2.4); AST(SGOT) 17 U/L (15-37); Alanine Aminotransfer ALT/SGPT 28 U/L (16-61); Albumin, Serum 3.7 g/dL (3.2-5.0); Alkaline Phosphatase 72 U/L (45-117); Anion Gap 6 (5-15); BUN 15 mg/dL (7-18); BUN/Creat Ratio 11.8 RATIO (10-20); Calcium,Total 8.7 mg/dL (8.5-10.1); Chloride 108 mmol/L (98-107); Cholesterol 209 mg/dL (200); Creatinine, Serum 1.27 mg/dL (0.70-1.30); EST Glomerular Filtration Rate 61 mL/min (>60); Est Glom Filt Rate - Afr Amer 74 mL/min (>60); Globulin 3.1 g/dL (2.2-4.2); Glucose 125 mg/dL (74-106); High Density Lipoprotein 59 mg/dL; Potassium 4.1 mmol/L (3.5-5.1); Protein, Total 6.8 g/dL (6.4-8.2); Sodium Level 141 mmol/L (136-145); Thyroid Stim Hormone (TSH) 4.64 uIU/mL (0.358-3.74); Triglycerides 145 mg/dL; Very Low Density Lipoprotein 29 mg/dL (5-40)
[2023-08-21 12:49] LABS: Pathologist Review Reviewed
== END | disposition home or self-care (01) ==
LOC: MFPLAB 10:03
PROVIDERS: PCP Family Medicine; Visit Provider Family Medicine
DX: Z00.00 Encounter for general adult medical examination without abnormal findings (principal); K50.90 Crohn's disease, unspecified, without complications; I10 Essential (primary) hypertension; Z13.220 Encounter for screening for lipoid disorders
CPT/HCPCS: 36415; 80053; 80061; 82043; 82570; 84443; 85025; 85652

== ENCOUNTER → 2023-11-26 | Outpatient (CLI) | payer BC, SELFPAY ==
[2023-11-26 12:14] LABS: Absolute Lymphocyte Count 0.19 X10^3/uL (0.83-4.51); Absolute Neutrophil Count 3.8 X10^3/uL (2.0-7.7); Basophil# 0.03 X10^3/uL; Basophil% 0.7 % (0-1); Eosinophil# 0.06 X10^3/uL; Eosinophils% 1.3 % (0-5); Hematocrit 39.1 % (40-54); Hemoglobin 13.3 g/dL (13.0-16.5); Lymphocyte # 0.19 X10^3/ul (0.83-4.51); Lymphocyte % 4.1 % (19-41); Mean Corpuscular Volume 102.9 fL (80-94); Mean Platelet Vol. 9.8 fl (6.2-12.0); Monocyte# 0.51 X10^3/uL; Monocyte% 11.1 % (0-10); NRBC Flagged by Analyzer 0 % (0-5); Neutrophil # 3.78 X10^3/uL (2.7-7.7); Neutrophil % 82.4 % (47-70); POSITIVE DIFFERENTIAL YES; Platelet Count 170 K/mm3 (150-450); RBC Distribution Width CV 12.4 % (11.6-14.6); RBC Distribution Width SD 46.5 fl (35.1-43.9); White Blood Count 4.6 K/mm3 (4.4-11.0)
[2023-11-26 12:20] LABS: Differential Indicated SCAN CRITERIA MET
[2023-11-26 12:35] LABS: Differential Comment SCANNED
[2023-11-26 13:07] LABS: T4 Free Direct 0.89 ng/dL (0.76-1.46); Thyroid Stim Hormone (TSH) 2.62 uIU/mL (0.358-3.74)
[2023-11-27 14:57] LABS: Vitamin B12 273 pg/mL (211-911)
[2023-11-27 14:57] LABS: Ferritin 76 ng/mL (26-388)
== END | disposition home or self-care (01) ==
LOC: MTLAB 10:18
PROVIDERS: PCP Family Medicine; Referring Provider Family Medicine; Visit Provider Family Medicine
DX: D72.819 Decreased white blood cell count, unspecified (principal); R79.89 Other specified abnormal findings of blood chemistry
CPT/HCPCS: 36415; 82607; 82728; 84439; 84443; 85025

== ENCOUNTER → 2024-02-18 | Outpatient (CLI) | payer BC, SELFPAY ==
[2024-02-18 10:00] LABS: Absolute Lymphocyte Count 0.47 X10^3/uL (0.83-4.51); Absolute Neutrophil Count 2.6 X10^3/uL (2.0-7.7); Basophil# 0.03 X10^3/uL; Basophil% 0.8 % (0-1); Eosinophil# 0.12 X10^3/uL; Eosinophils% 3.3 % (0-5); Hematocrit 39.6 % (40-54); Hemoglobin 13.9 g/dL (13.0-16.5); Lymphocyte # 0.47 X10^3/ul (0.83-4.51); Lymphocyte % 12.8 % (19-41); Mean Corp Hgb Conc 35.1 g/dL (32-36); Mean Corpuscular Hgb 35.5 pg (27.0-32.0); Mean Corpuscular Volume 101.3 fL (80-94); Mean Platelet Vol. 9.7 fl (6.2-12.0); Monocyte# 0.43 X10^3/uL; Monocyte% 11.7 % (0-10); NRBC Flagged by Analyzer 0 % (0-5); Neutrophil # 2.61 X10^3/uL (2.7-7.7); Neutrophil % 71.4 % (47-70); POSITIVE DIFFERENTIAL YES; Platelet Count 168 K/mm3 (150-450); RBC Distribution Width CV 12.1 % (11.6-14.6); RBC Distribution Width SD 45.3 fl (35.1-43.9); Red Blood Count 3.91 M/mm3 (4.6-6.2); White Blood Count 3.7 K/mm3 (4.4-11.0)
[2024-02-18 10:22] LABS: Vitamin B12 1609 pg/mL (211-911)
[2024-02-18 10:34] LABS: ALB/GLOB Ratio 1.4 RATIO (0.9-2.4); AST(SGOT) 19 U/L (15-37); Alanine Aminotransfer ALT/SGPT 25 U/L (16-61); Albumin, Serum 3.6 g/dL (3.2-5.0); Alkaline Phosphatase 64 U/L (45-117); Anion Gap 4 (5-15); BUN 17 mg/dL (7-18); BUN/Creat Ratio 14.5 RATIO (10-20); Calcium,Total 8.4 mg/dL (8.5-10.1); Chloride 109 mmol/L (98-107); Creatinine, Serum 1.17 mg/dL (0.70-1.30); EST Glomerular Filtration Rate 67 mL/min (>60); Est Glom Filt Rate - Afr Amer 81 mL/min (>60); Ferritin 55 ng/mL (26-388); Globulin 2.6 g/dL (2.2-4.2); Glucose 127 mg/dL (74-106); Iron 86 ug/dL (65-175); Potassium 3.9 mmol/L (3.5-5.1); Protein, Total 6.2 g/dL (6.4-8.2); Sodium Level 141 mmol/L (136-145)
[2024-02-18 10:49] LABS: Microalbumin,Random Urine 15.9 mg/L (NO RANGE EST.); Microalbumin:Creatinine Ratio 9.1 mg/g CRE (<30 mg/g CRE)
== END | disposition home or self-care (01) ==
LOC: MFPLAB 08:57
PROVIDERS: PCP Family Medicine; Visit Provider Family Medicine
DX: I10 Essential (primary) hypertension (principal); K50.90 Crohn's disease, unspecified, without complications
CPT/HCPCS: 36415; 80053; 82043; 82570; 82607; 82728; 82746; 83540; 85025

== ENCOUNTER → 2024-08-27 | Outpatient (CLI) | payer BC, SELFPAY ==
[2024-08-27 11:58] LABS: Absolute Lymphocyte Count 0.46 X10^3/uL (0.83-4.51); Absolute Neutrophil Count 2.7 X10^3/uL (2.0-7.7); Basophil# 0.02 X10^3/uL; Basophil% 0.5 % (0-1); Eosinophil# 0.12 X10^3/uL; Eosinophils% 3.3 % (0-5); Hematocrit 40.3 % (40-54); Hemoglobin 14.1 g/dL (13.0-16.5); Lymphocyte # 0.46 X10^3/ul (0.83-4.51); Lymphocyte % 12.6 % (19-41); Mean Corpuscular Hgb 35.4 pg (27.0-32.0); Mean Corpuscular Volume 101.3 fL (80-94); Mean Platelet Vol. 9.8 fl (6.2-12.0); Monocyte# 0.36 X10^3/uL; Monocyte% 9.9 % (0-10); NRBC Flagged by Analyzer 0 % (0-5); Neutrophil # 2.68 X10^3/uL (2.7-7.7); Neutrophil % 73.4 % (47-70); POSITIVE DIFFERENTIAL YES; Platelet Count 183 K/mm3 (150-450); RBC Distribution Width CV 11.9 % (11.6-14.6); RBC Distribution Width SD 44.4 fl (35.1-43.9); Red Blood Count 3.98 M/mm3 (4.6-6.2); White Blood Count 3.7 K/mm3 (4.4-11.0)
[2024-08-27 12:20] LABS: Vitamin B12 533 pg/mL (211-911)
[2024-08-27 12:35] LABS: ALB/GLOB Ratio 1.3 RATIO (0.9-2.4); AST(SGOT) 18 U/L (15-37); Alanine Aminotransfer ALT/SGPT 23 U/L (16-61); Albumin, Serum 3.7 g/dL (3.2-5.0); Alkaline Phosphatase 66 U/L (45-117); Anion Gap 5 (5-15); BUN 14 mg/dL (7-18); BUN/Creat Ratio 12.3 RATIO (10-20); Calcium,Total 8.6 mg/dL (8.5-10.1); Chloride 109 mmol/L (98-107); Creatinine, Serum 1.14 mg/dL (0.70-1.30); EST Glomerular Filtration Rate 69 mL/min (>60); Est Glom Filt Rate - Afr Amer 84 mL/min (>60); Globulin 2.8 g/dL (2.2-4.2); Glucose 111 mg/dL (74-106); PSA,Total- Diagnostic 1.62 ng/mL (0.0-4.0); Protein, Total 6.5 g/dL (6.4-8.2); Sodium Level 140 mmol/L (136-145)
== END | disposition home or self-care (01) ==
PROVIDERS: PCP Family Medicine; Referring Provider Family Medicine; Visit Provider Family Medicine
DX: I10 Essential (primary) hypertension (principal); K50.90 Crohn's disease, unspecified, without complications; R35.1 Nocturia
CPT/HCPCS: 36415; 80053; 82607; 82746; 84153; 85025

== ENCOUNTER → 2024-12-30 | Outpatient (CLI) | payer BC, SELFPAY ==
[2024-12-31 08:10] LABS: Hepatitis B Surface Antigen Nonreactive (Nonreactive)
[2025-01-05 09:08] LABS: QNTFERON TB Mitogen Value 2.85 IU/mL (.); QNTFERON TB Nil Value 0.01 IU/mL (.); QNTFERON TB1+ Ag Value 0.01 IU/mL (.); QNTFERON TB2+ Ag Value 0.01 IU/mL (.); QNTIFERON TB Positive Criteria Negative (Negative)
== END | disposition home or self-care (01) ==
PROVIDERS: PCP Family Medicine; Referring Provider Internal Medicine Gastroenterology; Visit Provider Internal Medicine Gastroenterology
DX: K51.90 Ulcerative colitis, unspecified, without complications (principal)
CPT/HCPCS: 36415; 86480; 87340

== ENCOUNTER → 2025-10-05 | Outpatient (CLI) | payer BC, SELFPAY ==
[2025-10-05 12:12] LABS: AST(SGOT) 29 U/L (<=37); Alanine Aminotransfer ALT/SGPT 37 U/L (<=46); Albumin, Serum 4.1 g/dL (3.4-4.8); Alkaline Phosphatase 73 U/L (40-129); Anion Gap 10 (5-15); BUN 16 mg/dL (4-19); BUN/Creat Ratio 11.8 RATIO (10-20); Calcium,Total 8.9 mg/dL (7.6-11.0); Carbon Dioxide 26.4 mmol/L (21.0-32.0); Chloride 106 mmol/L (98-108); Cholesterol 187 mg/dL (<=200); Globulin 2.2 g/dL (2.2-4.2); Glucose 111 mg/dL (70-99); Low Density Lipoprotein Calc. 109 mg/dL; Potassium 4.1 mmol/L (3.3-5.1); Triglycerides 98 mg/dL; Very Low Density Lipoprotein 20 mg/dL (5-40); cholesterol:hdl ratio screen 3.11
== END | disposition home or self-care (01) ==
LOC: LAB 10:01
PROVIDERS: PCP Family Medicine; Referring Provider Internal Medicine Cardiovascular Disease; Visit Provider Internal Medicine Cardiovascular Disease
DX: I25.10 Atherosclerotic heart disease of native coronary artery without angina pectoris (principal); K50.10 Crohn's disease of large intestine without complications; I10 Essential (primary) hypertension; E78.5 Hyperlipidemia, unspecified
CPT/HCPCS: 36415; 80053; 80061

== ENCOUNTER → 2025-10-22 | Outpatient (CLI) | payer BC, SELFPAY ==
--- NOTE | 2025-10-22 10:44 | ECHOD_ITS ---
Reason For Study Reason For Study: CAD/ASHD Procedure This was a 2D Doppler, Color Flow transthoracic echocardiogram. Myocardial strain analysis was performed in this exam to aid in the assessment of cardiac function. The patient is in sinus rhythm. Exam performed in department. Left Ventricle Normal size and thickness. The global longitudinal strain = -16.8% (borderline). Mild anterior, anteroseptal and lateral hypokinesis. Estimated LVEF 50-55%. Stage I diastolic dysfunction. Right Ventricle Normal right ventricle. Atria The left and right atria are normal. Mitral Valve Trivial mitral valve insufficiency. Tricuspid Valve Mild-Moderate (1-2+) tricuspid valve insufficiency. Normal pulmonary artery pressure. Aortic Valve Trisinus/trileaflet aortic valve. Pulmonic Valve The pulmonic valve is not well visualized. Great Vessels Normal sized aortic root. Pericardium/Pleural No pericardial effusion. MMode/2D Measurements & Calculations LVIDd: 5.1 cm IVSd: 0.96 cm Ao root diam: 3.9 cm LVIDs: 4.3 cm LVPWd: 0.91 cm RVDd: 4.1 cm FS: 16.2 % LAV(MOD-bp): 60.6 ml LVAd ap4: 33.6 cm2 SV(MOD-sp4): 56.6 ml LAV(MOD-bp) Indexed: 27.8 ml/m2 LVLd ap4: 8.9 cm SI(MOD-sp4): 26.0 ml/m2 LAV(MOD-sp2): 63.4 ml EDV(MOD-sp4): 105.1 ml LAV(MOD-sp4): 56.6 ml EDV(sp4-el): 108.4 ml LVAs ap4: 21.8 cm2 LVLs ap4: 8.1 cm ESV(MOD-sp4): 48.4 ml ESV(sp4-el): 49.9 ml EF(MOD-sp4): 53.9 % EF(sp4-el): 54.0 % SV(sp4-el): 58.6 ml LA A4 area: 19.0 cm2 LA dimension(2D): 4.1 cm RA A4 area: 21.3 cm2 TAPSE: 1.9 cm Time Measurements MV dec time: 0.22 sec Doppler Measurements & Calculations MV E max víctor: 57.4 cm/sec Lat Peak E' Víctor: 8.8 cm/sec Med Peak E' Víctor: 10.5 cm/sec MV A max víctor: 78.5 cm/sec E/E' lat: 6.5 E/E' med: 5.5 MV E/A: 0.73 MV V2 max: 98.4 cm/sec MV P1/2t max víctor: 63.0 cm/sec Ao V2 max: 161.1 cm/sec MV max P.9 mmHg MV P1/2t: 74.1 msec Ao max P.4 mmHg MV V2 mean: 49.3 cm/sec Ao V2 mean: 104.5 cm/sec MV mean P.1 mmHg MV dec slope: 248.9 cm/sec2 Ao mean P.1 mmHg MV V2 VTI: 23.5 cm MVA(P1/2t): 3.0 cm2 Ao V2 VTI: 32.3 cm AV (velocity ratio): 0.86 LV V1 max: 125.2 cm/sec MR max víctor: 455.5 cm/sec PA V2 max: 149.5 cm/sec LV V1 max P.3 mmHg MR max P.0 mmHg LV V1 mean P.1 mmHg LV V1 mean: 81.1 cm/sec LV V1 VTI: 27.8 cm TR max víctor: 277.6 cm/sec TR max P.8 mmHg ECHO/Echo Complete Interpretation Summary Mild anterior, anteroseptal and lateral hypokinesis. Estimated LVEF 50-55%. Sta ge I diastolic dysfunction. The global longitudinal strain = -16.8% (borderline). Mild-Moderate (1-2+) tricuspid valve insufficiency. Ordering Physician: Khoa العلي Referring Physician: Khoa العلي Performed By: Gildardo Flynn RCS
== END | disposition home or self-care (01) ==
LOC: CVS 10:44
PROVIDERS: PCP Family Medicine; Referring Provider Internal Medicine Cardiovascular Disease; Visit Provider Internal Medicine Cardiovascular Disease
DX: I25.10 Atherosclerotic heart disease of native coronary artery without angina pectoris (principal); K50.10 Crohn's disease of large intestine without complications; I10 Essential (primary) hypertension; E78.5 Hyperlipidemia, unspecified
CPT/HCPCS: 93306